=== PATIENT | male | born 1975 | race Caucasian/White ===

== ENCOUNTER 2021-06-12 13:10 | Emergency (ER) | payer OTHER, MEDICARE ==
[2021-06-12] MEDS ORDERED: MOBIC15 MG PO (18:18)
[2021-06-12] MEDS ORDERED: CYCLOBENZAPRINE5 MG PO (18:18)
== END 2021-06-12 18:50 | disposition home or self-care (01) ==
LOC: ER1 13:10
DX: S16.1XXA Strain of muscle, fascia and tendon at neck level, initial encounter (principal); S29.012A Strain of muscle and tendon of back wall of thorax, initial encounter; S32.029A Unspecified fracture of second lumbar vertebra, initial encounter for closed fracture; J44.9 Chronic obstructive pulmonary disease, unspecified; F17.200 Nicotine dependence, unspecified, uncomplicated; Z88.0 Allergy status to penicillin; Z88.5 Allergy status to narcotic agent; V49.50XA Passenger injured in collision with unspecified motor vehicles in traffic accident, initial encounter; Y92.410 Unspecified street and highway as the place of occurrence of the external cause
CPT/HCPCS: 72072; 72100; 72125; 72131; 73562; 99284